=== PATIENT | male | born 1980 | race Caucasian/White ===

== ENCOUNTER 2018-01-27 02:38 | Emergency (ER) | payer BC ==
[~2018-01-27] VITALS: Ht 177.8 cm; Wt 82.5 kg
[~2018-01-27 02:38] MED LIST: AZITHROMYCIN500 M1 PO; MOBIC15 MG PO; PERCOCET 5-3251 EACH PO; ROXICODONE30 MG PO
[2018-01-27] MEDS ORDERED: INDOCIN50 MG PO (03:15)
[2018-01-27 03:53] VITALS: BP 132/85
== END 2018-01-27 03:54 | disposition home or self-care (01) ==
LOC: EME 02:38
DX: S90.02XA Contusion of left ankle, initial encounter (principal); W21.03XA Struck by baseball, initial encounter; Y93.64 Activity, baseball; Y92.320 Baseball field as the place of occurrence of the external cause
CPT/HCPCS: 73610; 99281; 99284